=== PATIENT | female | born 1995 | race Caucasian/White ===

== ENCOUNTER → 2019-08-18 | Outpatient (REF) | payer OTHER | LOC: M LAB REF 12:34 | PROVIDERS: ATTEND Physician Assistant Medical | DX: J02.9 Acute pharyngitis, unspecified (principal) ==

== ENCOUNTER 2022-03-03 20:24 | Emergency (ER) | payer OTHER ==
[~2022-03-03] VITALS: Ht 162.6 cm; Wt 68.6 kg
[2022-03-03 20:24] VITALS: BP 133/81
== END 2022-03-03 20:38 | disposition left against medical advice (07) ==
LOC: M ED 20:24
DX: Z53.21 Procedure and treatment not carried out due to patient leaving prior to being seen by health care provider (principal)

== ENCOUNTER → 2022-04-07 | Outpatient (REF) | payer OTHER | LOC: M LAB REF 18:52 | PROVIDERS: ATTEND Physician Assistant Medical | DX: J02.9 Acute pharyngitis, unspecified (principal) ==

== ENCOUNTER 2023-12-09 12:16 | Emergency (ER) | payer OTHER ==
[~2023-12-09] VITALS: Ht 162.6 cm; Wt 73.0 kg
[2023-12-09 13:43] VITALS: BP 132/78; TEMP 98.5; O2SAT 98
== END 2023-12-09 13:56 | disposition home or self-care (01) ==
LOC: M ED 12:16
DX: S80.912A Unspecified superficial injury of left knee, initial encounter (principal); W19.XXXA Unspecified fall, initial encounter; F12.10 Cannabis abuse, uncomplicated; Y92.218 Other school as the place of occurrence of the external cause; Y93.9 Activity, unspecified; Y99.0 Civilian activity done for income or pay